=== PATIENT | male | born 1955 | race Caucasian/White ===

== ENCOUNTER 2022-05-17 10:02 | Emergency (ER) | payer MEDICARE ==
[~2022-05-17] VITALS: Ht 188 cm; Wt 122.7 kg
[2022-05-17 10:23] VITALS: TEMP 98.3
[2022-05-17] MEDS ORDERED: EUTHYROX125 MCG PO (10:47)
[2022-05-17] MEDS ORDERED: LIPITOR 10MG10 MG PO (10:47)
[2022-05-17] MEDS ORDERED: NORMODYNE100 MG PO (10:47)
[2022-05-17] MEDS ORDERED: NEURONTIN300 MG/CAP PO (10:48)
[2022-05-17] MEDS ORDERED: NEXIUM 40MG40 MG (10:48)
[2022-05-17 10:58] LABS: BASO # 0.1 K/mm3 (0.0-0.2); BASO % 0.7 % (0.0-2.0); EOS # 0.3 K/mm3 (0.0-0.7); EOS % 3.3 % (0.0-4.0); GRAN % 76.8 % (42.2-75.2); HEMATOCRIT 43.3 % (42.0-52.0); LYMPH # 0.9 K/mm3 (1.2-3.4); LYMPH % 8.4 % (20.0-51.0); MEAN CELL VOLUME 74 fl (80.0-100.0); MEAN CORPUSCULAR HEMOGLOBIN 24 pg (27-31); MEAN CORPUSCULAR HGB CONC 32 g/dl (33.0-37.0); MONO # 1.1 K/mm3 (0.1-0.6); MONO % 10.3 % (1.7-9.3); PLATELET COUNT 163 K/mm3 (130-400); RED BLOOD COUNT 5.85 M/mm3 (4.20-5.60); REDCELL DISTRIBUTION WIDTH-CV 16.6 % (11.5-14.5)
[2022-05-17 11:16] LABS: ALBUMIN 3.5 gm/dL (3.4-4.8); BILIRUBIN,TOTAL 1.1 mg/dL (0.2-1.2); C-REACTIVE PROTEIN 9.44 mg/dL (0.00-0.50); CALCIUM 8.9 mg/dL (8.4-10.2); CREATININE, serum 1.09 mg/dL (0.72-1.25); TOTAL PROTEIN 6.8 gm/dL (6.2-8.1)
[2022-05-17 12:13] LABS: COLLECTION METHOD CLEAN CATCH
[2022-05-17 12:19] LABS: PH 6 (5-8); URINE APPEARANCE Clear (CLEAR/HAZY); URINE BLOOD Negative (NEGATIVE); URINE COLOR Yellow (YELLOW); URINE GLUCOSE Negative (NEGATIVE); URINE KETONE Negative (NEGATIVE); URINE NITRATE Negative (NEGATIVE); URINE PROTEIN(semi-quant) Negative (NEGATIVE); URINE UROBILINOGEN Negative (NEGATIVE)
[2022-05-17 12:26] LABS: MUCOUS Present (NOT PRESENT); SQUAMOUS EPITHELIAL None Seen /hpf (0-10); URINE BACTERIA None Seen /hpf (NONE SEEN); URINE RBC 0-2 /hpf (0-2)
[2022-05-17] MEDS ORDERED: PERCOCET 325 MG1 TA2 PO (13:55)
[2022-05-17 14:06] VITALS: BP 148/86; PULSE 50
== END 2022-05-17 14:10 | disposition home or self-care (01) ==
LOC: COL.ER 10:02
PROVIDERS: Physician Assistant
DX: K55.069 Acute infarction of intestine, part and extent unspecified (principal); R79.82 Elevated C-reactive protein (CRP); X50.0XXA Overexertion from strenuous movement or load, initial encounter
CPT/HCPCS: J1885; J2270; J7030; Q9967